=== PATIENT | female | born 2000 | race Caucasian/White ===

== ENCOUNTER 2025-04-23 11:48 | Emergency (ER) | payer OTHER, SELFPAY ==
--- NOTE | 2025-04-23 12:00 | ED.GENADULT ---
HPI - General Adult General Chief complaint: Skin/Abscess/Foreign Body Stated complaint: INFECTED TOENAIL Time Seen by Provider: 04/23/25 12:11 Source: patient, RN notes reviewed and old records reviewed Mode of arrival: ambulatory Limitations: no limitations History of Present Illness HPI narrative: 25-year-old female presents to the [facility] with 4 week history an ingrown toenail. States that she was treated on March 31 with Keflex. Had done a video conference with her primary care provider. Patient states it has gotten a little bit worse last couple days, tenders swelling. Did have drainage. No fluctuance currently. No drainage currently. Related Data Home Medications ?Medication ?Instructions ?Recorded ?Confirmed ?Last Taken ?Type aripiprazole 10 mg tablet mg 04/23/25 Unknown History bupropion HCl 300 mg 24 hr tablet, mg PO 04/23/25 Unknown History extended release metoprolol succinate 25 mg mg PO 04/23/25 Unknown History tablet,extended release 24 hr tirzepatide (weight loss) 10 mg subcut 04/23/25 Unknown History mg/0.5 mL subcutaneous pen injector (Zepbound) Allergies Allergy/AdvReac Type Severity Reaction Status Date / Time No Known Allergies Allergy Verified 04/23/25 11:56 Review of Systems Review of Systems: All systems reviewed & are unremarkable except as noted in HPI and below Constitutional: Constitutional: Reports no additional constitutional complaints Musculoskeletal: Musculoskeletal: Reports as per HPI Integumentary/Breasts: Skin/Breast: Reports as per HPI PMFSH Comments At the time of my signature, I reviewed and agree with the nursing past medical, surgical, social, and family history. There is no relevant family history pertinent to the patient complaint. Exam Const: General: cooperative, healthy appearing, comfortable, no acute distress, well developed, alert and well nourished Nutritional Appearance: well nourished and obese Orientation/consciousness: patient oriented x3 Limitations: no limitations HENMT: Head: normal to inspection Eyes: General: appearance normal, both eyes and all related structures Alignment and Position: alignment normal Neck: Neck: normal visual inspection, full ROM, no lymphadenopathy and no meningeal signs Chest: Chest palpation & inspection: normal inspection of the chest Resp: Effort & Inspection: normal respiratory effort and able to speak in complete sentences Cardio: Rate: regular rate Skin: General skin exam: normal color and no rashes or lesions noted Other: Left great toe lateral aspect around great toenail, indurated skin, swollen. No fluctuance Ingrown toenail Neuro: General: patient oriented x3, gait normal, moves all extremities and no meningeal signs Cognition (Neuro): normal cognition Speech: normal speech Gait exam (Neuro): Normal gait present Extrem: General: normal to inspection, full ROM, capillary refill normal and normal gait Psych: Appearance: grossly normal and well kempt Mental Status: mental status grossly normal Speech and movement: Normal speech and movement present and Clear speech present Affect: normal affect Attitude: cooperative Course Course Level of Care: Express Care Visit Vital Signs Vital signs: Vital Signs Temperature 97 F L 04/23/25 12:01 Pulse Rate 78 04/23/25 12:01 Respiratory Rate 16 04/23/25 12:01 Blood Pressure 112/77 04/23/25 12:01 Pulse Oximetry 100 04/23/25 12:01 Temperature 97 F L 04/23/25 12:01 Pulse Rate 78 04/23/25 12:01 Respiratory Rate 16 04/23/25 12:01 Blood Pressure 112/77 04/23/25 12:01 Pulse Oximetry 100 04/23/25 12:01 Reviewed Medical Decision Making MDM Narrative Medical decision making narrative: Patient sitting comfortably in exam room. Nontoxic, vitals stable. Patient in no acute distress Patient presents for an ingrown toenail, inflammation of the surrounding tissue. Discussed [id number] treatments, will prescribe Bactrim. Discussed the importance of keeping the area clean and dry. Following up with Podiatry which patient verbalized understanding Discharge instructions reviewed with patient, as well as provided in writing per nursing staff. The instructions also include specific and strict return/GO TO THE ER as well as f/u information. All questions have been answered, and the patient deny any further questions with discharge and discharge plan. Some parts of this dictation were generated by voice recognition software and may contain typographical and/or grammatical inaccuracies. Differential Diagnosis Differential Diagnosis: Paronychia, ingrown toenail, cellulitis Medical Records Medical records reviewed: Yes I reviewed the external patient's medical records. Vital Signs Vital Signs: Vital Signs Temperature 97 F L 04/23/25 12:01 Pulse Rate 78 04/23/25 12:01 Respiratory Rate 16 04/23/25 12:01 Blood Pressure 112/77 04/23/25 12:01 Pulse Oximetry 100 04/23/25 12:01 Temperature 97 F L 04/23/25 12:01 Pulse Rate 78 04/23/25 12:01 Respiratory Rate 16 04/23/25 12:01 Blood Pressure 112/77 04/23/25 12:01 Pulse Oximetry 100 04/23/25 12:01 Reviewed Lab Data Lab results reviewed: Yes I reviewed the patient's lab results. Labs: Reviewed Critical Care Time Critical Care Time Critical Care Time: No Discharge Plan Discharge Clinical Impression: Ingrown left big toenail Patient Disposition: Home Condition: Stable Instructions: Antibiotic Form, Ingrown Nail (ED) Additional Instructions: Soak your toe twice a day in warm soapy water for 15-20 minutes. Read the handout you were given in regards to ingrown toenails Follow-up with primary care provider Follow-up with podiatry Patient Language: Romanian Prescriptions: New sulfamethoxazole-trimethoprim [Bactrim DS] 800-160 mg tablet 1 tablet PO Q12H Qty: 14 0RF No Action metoprolol succinate 25 mg tablet extended release 24 hr PO aripiprazole 10 mg tablet bupropion HCl 300 mg tablet extended release 24 hr PO Zepbound 10 mg/0.5 mL pen injector SUBCUT Follow-up/Referrals: Jimbo,Wes [Other] - 1 Week Ervin Olivier Jr., DPM [Physician] - 3 Days (ingrown toe nail) Time of Disposition: 12:33
[2025-04-23 12:01] VITALS: BP 112/77; PULSE 78; RESP 16; TEMP 36.1; O2SAT 100
== END 2025-04-23 12:47 | disposition home or self-care (01) ==
PROVIDERS: Emergency Provider Nurse Practitioner
DX: L60.0 Ingrowing nail (principal); Z79.899 Other long term (current) drug therapy
CPT/HCPCS: 99203; G0463